=== PATIENT | male | born 1960 | race American Indian/Alaskan Native ===

== ENCOUNTER 2016-08-25 20:36 | Emergency (ER) | payer MEDICAID ==
[2016-08-25] MEDS ORDERED: NITROSTAT SL PRN (21:19)
--- NOTE | 2016-08-25 21:20 | Emergency Department Report ---
ED Chest Pain HPI - General Chief Complaint: Chest Pain Stated Complaint: CHEST PAIN Time Seen by Provider: 08/25/16 21:08 Source: patient, EMS (ems notes not available at time of chart dictation), RN notes reviewed, old records reviewed Mode of arrival: Stretcher Limitations: No Limitations - History of Present Illness Initial Comments: This is a 56-year-old male. He is previously unknown to me. The patient reports his primary care doctor is at [facility]. Past medical history includes hypertension, chronic kidney disease, cocaine use , admitted to the hospital on 07/14/2016. Patient also has a history of HIV/ AIDS, and is on highly active antiretroviral therapy. The patient is brought to the ER today with a complaint of chest pain. The chest pain has since resolved. The chest pain was central, and did not radiate to the back, arms and neck. The patient endorses shortness of breath and diaphoresis. It has since resolved. The patient denies headache, neck pain, abdominal pain, lower extremity pain and no swelling at this time. Patient was found to have acute on chronic renal insufficiency. As per review of his old medical records, he had an admission creatinine of 2.8 in June, today is 4.0. I strongly recommended admission to the hospital for acute coronary syndrome risk stratification, and for further evaluation and treatment of acute on chronic renal insufficiency. The patient is going to sign out AGAINST MEDICAL ADVICE. The patient is alert and oriented 3. He exhibits decision-making capacity. He is free from distracting injury, and he is clinically sober at this time. 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 The patient was counseled that he could return to the ER right away if when he changes his mind. The patient indicated he would do so. This conversation was witnessed by nurse Carmela Breaux MD Complaint: chest pain -: Gradual Onset: during rest Pain Location: substernal Severity: moderate Severity scale (0 -10): 5 Consistency: now resolved Improves With: nitroglycerin re: diaphoresis, dyspnea Aspirin use within the Past 7 Days: (1) Yes - Related Data On Oral Contraceptives: No Home Medications Medication Instructions Recorded Confirmed Last Taken Unobtainable 08/25/16 08/25/16 Unknown Allergies Allergy/AdvReac Type Severity Reaction Status Date / Time amlodipine Allergy Swelling Verified 08/25/16 20:46 ANTHONY score - Anthony Score Age > 65: (0) No Aspirin use within the Past 7 Days: (1) Yes 3 or more CAD Risk Factors: (1) Yes 2 or more Angina events in past 24 hrs: (0) No Known CAD with more than 50% Stenosis: (0) No Elevated Cardiac Markers: (0) No ST Deviation Greater than 0.5mm: (0) No ANTHONY Score: 2 ED Review of Systems ROS: Stated complaint: CHEST PAIN Other details as noted in HPI Constitutional: diaphoresis. denies: fever Eyes: denies: vision change ENT: denies: epistaxis Respiratory: see HPI Cardiovascular: chest pain Gastrointestinal: denies: abdominal pain Genitourinary: as per HPI Musculoskeletal: as per HPI Skin: as per HPI Neurological: as per HPI. denies: confusion ED Past Medical Hx - Past Medical History Hx Hypertension: Yes Hx Congestive Heart Failure: Yes Hx Renal Disease: Yes Hx Asthma: Yes Additional medical history: SC, "bone disease" - Surgical History Past Surgical History?: No - Social History Smoking Status: Current Every Day Smoker Substance Use Type: Alcohol - Medications Home Medications: Home Medications Medication Instructions Recorded Confirmed Last Taken Type Unobtainable 08/25/16 08/25/16 Unknown History ED Physical Exam - General Limitations: No Limitations General appearance: alert, in no apparent distress - Head Head exam: Present: atraumatic, normocephalic - Eye Eye exam: Present: normal appearance, EOMI. Absent: nystagmus - ENT ENT exam: Present: normal exam, normal orophraynx, mucous membranes moist, normal external ear exam - Neck Neck exam: Present: normal inspection, full ROM. Absent: tenderness, meningismus - Respiratory Respiratory exam: Present: normal lung sounds bilaterally. Absent: respiratory distress, wheezes, rales, rhonchi, stridor, chest wall tenderness, accessory muscle use, decreased breath sounds, prolonged expiratory - Cardiovascular Cardiovascular Exam: Present: regular rate, normal rhythm, normal heart sounds. Absent: bradycardia, tachycardia, irregular rhythm, systolic murmur, diastolic murmur, rubs, gallop - GI/Abdominal GI/Abdominal exam: Present: soft, normal bowel sounds. Absent: distended, tenderness, guarding, rebound, rigid, pulsatile mass - Rectal Rectal exam: Present: deferred - Extremities Exam Extremities exam: Present: normal inspection, full ROM, normal capillary refill. Absent: tenderness, pedal edema, joint swelling, calf tenderness - Back Exam Back exam: Present: normal inspection, full ROM. Absent: tenderness, CVA tenderness (R), CVA tenderness (L), muscle spasm, paraspinal tenderness, vertebral tenderness - Neurological Exam Neurological exam: Present: alert, oriented X3, normal gait, other (Extraocular movements intact. Tongue midline. No facial droop. Facial sensation intact to light touch in the V1, V2, V3 distribution bilaterally. 5 and 5 strength in 4 extremities.. Sensation is intact to light touch in 4 extremities.). Absent : motor sensory deficit - Psychiatric Psychiatric exam: Present: normal affect, normal mood. Absent: homicidal ideation, suicidal ideation - Skin Skin exam: Present: warm, dry, intact, normal color. Absent: rash ED Course Vital Signs 08/25/16 08/25/16 08/25/16 20:46 20:59 21:05 Temperature 97.6 F Pulse Rate 97 H 93 H Respiratory 18 18 Rate Blood Pressure 118/74 Blood Pressure [Left] O2 Sat by Pulse 100 100 Oximetry 08/25/16 08/25/16 22:57 23:26 Temperature 98 F Pulse Rate 90 88 Respiratory 16 16 Rate Blood Pressure Blood Pressure 116/70 129/63 [Left] O2 Sat by Pulse 100 100 Oximetry ED Medical Decision Making - Lab Data Result diagrams: 08/25/16 21:44 08/25/16 21:44 Vital Signs 08/25/16 08/25/16 08/25/16 20:46 20:59 21:05 Temperature 97.6 F Pulse Rate 97 H 93 H Respiratory 18 18 Rate Blood Pressure 118/74 Blood Pressure [Left] O2 Sat by Pulse 100 100 Oximetry 08/25/16 22:57 Temperature 98 F Pulse Rate 90 Respiratory 16 Rate Blood Pressure Blood Pressure 116/70 [Left] O2 Sat by Pulse 100 Oximetry Labs 08/25/16 08/25/16 08/25/16 20:45 21:44 21:44 WBC 8.8 RBC 4.93 Hgb 14.4 Hct 44.2 MCV 90 MCH 29 MCHC 33 RDW 13.5 Plt Count 278 Lymph % (Auto) 12.8 L [place] % (Auto) 10.9 H Eos % (Auto) 0.9 Baso % (Auto) 0.2 Lymph # 1.1 L [place] # 1.0 H Eos # 0.1 Baso # 0.0 Seg Neutrophils % 75.2 H Seg Neutrophils # 6.6 PT INR Sodium 136 L Potassium 4.6 Chloride 95.4 L Carbon Dioxide 26 Anion Gap 19 BUN 56 H Creatinine 4.0 H Estimated GFR 19 BUN/Creatinine Ratio 14.00 Glucose 102 H POC Glucose 140 H Calcium 9.5 Troponin T 0.018 08/25/16 21:44 WBC RBC Hgb Hct MCV MCH MCHC RDW Plt Count Lymph % (Auto) [place] % (Auto) Eos % (Auto) Baso % (Auto) Lymph # [place] # Eos # Baso # Seg Neutrophils % Seg Neutrophils # PT 13.1 INR 1.00 Sodium Potassium Chloride Carbon Dioxide Anion Gap BUN Creatinine Estimated GFR BUN/Creatinine Ratio Glucose POC Glucose Calcium Troponin T - EKG Data -: EKG Interpreted by Me EKG shows normal: sinus rhythm - EKG Data 08/25/16 23:22 normal sinus, 93 bpm, normal axis, QTC 489 ms, diffuse T-wave abnormalities, unchanged from prior EKG from 2011, not morphologically consistent with STEMI. Abnormal EKG. - Radiology Data Radiology results: image reviewed interpreted by me: X-ray of the chest is hyperinflated, demonstrates no acute disease - Differential Diagnosis acute coronary syndrome, pneumonia, worsening renal insufficiency Critical care attestation.: If time is entered above; I have spent that time in minutes in the direct care of this critically ill patient, excluding procedure time. ED Disposition Clinical Impression: Chest pain, Renal insufficiency Disposition: LEFT AGAINST MEDICAL ADVICE Is pt being admited?: No Does the pt Need Aspirin: No Condition: Undetermined Instructions: Chest Pain (ED) Additional Instructions: As we discussed, you have left the hospital/emergency room AGAINST MEDICAL ADVICE. By leaving, you risked , disability, paralysis, permanent loss of quality of life. The ER is open 24 hours a day, 7 days a week. It never closes. Please return to the emergency room right away if and when you change your mind. If you decide not to return to the emergency room, please follow-up with the listed physician referrals as soon as possible. Referrals: MIKEY PETTIT MD [Primary Care Provider] - 3-5 Days PATO CALLEJAS MD [Staff Physician] - 3-5 Days JERROD CORTEZ MD [Staff Physician] - 3-5 Days CHEYANNE COLE MD [Staff Physician] - 3-5 Days
[2016-08-25 22:15] LABS: Basophils % (Auto) 0.2 % (0.0-1.8); Eosinophils % (Auto) 0.9 % (0.0-4.3); Hematocrit 44.2 % (35.5-45.6); Hemoglobin 14.4 gm/dl (11.8-15.2); Mean Corpuscular HGB Conc 33 % (32-34); Mean Corpuscular Hemoglobin 29 pg (28-32); Mean Corpuscular Volume 90 fl (84-94); Platelet Count 278 K/mm3 (140-440); Red Blood Count 4.93 M/mm3 (3.65-5.03); Red Cell Distribution Width 13.5 % (13.2-15.2); White Blood Count 8.8 K/mm3 (4.5-11.0)
[2016-08-25 22:48] LABS: Calcium 9.5 mg/dL (8.4-10.2); Chloride 95.4 mmol/L (98-107); Potassium 4.6 mmol/L (3.6-5.0)
[2016-08-25 23:28] VITALS: BP 129/63
--- NOTE | 2016-08-26 10:29 | XRay Report ---
ROUTINE CHEST, TWO VIEWS: HISTORY: chest pain. The trachea, heart, mediastinal contour, lung canales and bony thorax are unremarkable. IMPRESSION: Unremarkable chest x-ray.
== END 2016-08-25 23:32 | disposition left against medical advice (07) ==
LOC: ED 20:36
DX: R07.89 Other chest pain (principal); R06.02 Shortness of breath; R61 Generalized hyperhidrosis; I13.0 Hypertensive heart and chronic kidney disease with heart failure and stage 1 through stage 4 chronic kidney disease, or unspecified chronic kidney disease; N18.9 Chronic kidney disease, unspecified; I50.9 Heart failure, unspecified; J45.909 Unspecified asthma, uncomplicated; F17.200 Nicotine dependence, unspecified, uncomplicated
CPT/HCPCS: 36415; 71020; 80048; 82962; 84484; 85025; 85610; 93005; 93010